=== PATIENT | male | born 1990 | race Caucasian/White ===

== ENCOUNTER 2018-12-29 01:09 | Emergency (ER) | payer MEDICAID, OTHER ==
[2018-12-29] MEDS: morphine 4 MG/ML VIAL IM (03:48)
[2018-12-29] MEDS: predniSONE 20 MG TAB PO (03:48)
[2018-12-29] MEDS: DIAZEPAM 5 MG/ML SYG IM (03:49)
== END 2018-12-29 05:49 | disposition home or self-care (01) ==
LOC: FTE 01:09
DX: S76.391A Other specified injury of muscle, fascia and tendon of the posterior muscle group at thigh level, right thigh, initial encounter (principal); S30.0XXA Contusion of lower back and pelvis, initial encounter; X58.XXXA Exposure to other specified factors, initial encounter; Y92.9 Unspecified place or not applicable
CPT/HCPCS: 96372; 99284-25